=== PATIENT | male | born 1995 | race Caucasian/White ===

== ENCOUNTER 2017-12-17 19:58 | Emergency (ER) | payer SELFPAY ==
[~2017-12-17] VITALS: Ht 193 cm; Wt 98.5 kg
[2017-12-17 20:00] VITALS: BP 131/88
[2017-12-17] MEDS ORDERED: METHOCARBAMOL 750 MG TABLET ONE (20:44)
[2017-12-17] MEDS ORDERED: IBUPROFEN 200 MG TABLET ONE (20:44)
[2017-12-17] MEDS ORDERED: IBUPROFEN 200 MG TABLET PO ONE (21:00)
[2017-12-17] MEDS ORDERED: METHOCARBAMOL 750 MG TABLET PO ONE (21:00)
== END 2017-12-17 21:16 | disposition home or self-care (01) ==
LOC: ED 20:54
DX: S39.012A Strain of muscle, fascia and tendon of lower back, initial encounter (principal); W18.30XA Fall on same level, unspecified, initial encounter; Y93.6A Activity, physical games generally associated with school recess, summer camp and children; Y92.328 Other athletic field as the place of occurrence of the external cause; Y99.8 Other external cause status
CPT/HCPCS: 72110; 99284